=== PATIENT | male | born 1995 | race African-American/Black ===

== ENCOUNTER 2018-06-06 10:20 | Emergency (ER) | payer BC ==
[~2018-06-06] VITALS: Ht 177.8 cm; Wt 105.7 kg
[2018-06-06 10:31] VITALS: BP 127/89; Ht 177.8 cm; Wt 105.7 kg
== END 2018-06-06 12:17 | disposition home or self-care (01) ==
LOC: ED 10:20
DX: S96.911A Strain of unspecified muscle and tendon at ankle and foot level, right foot, initial encounter (principal); M72.2 Plantar fascial fibromatosis; X58.XXXA Exposure to other specified factors, initial encounter; Y93.89 Activity, other specified; Y92.89 Other specified places as the place of occurrence of the external cause; Y99.8 Other external cause status